=== PATIENT | female | born 1945 | race Two or more races ===

== ENCOUNTER 2023-12-29 22:27 | Emergency (ER) | payer MEDICARE, BC, SELFPAY ==
[2023-12-29 22:35] VITALS: BP 118/74
[2023-12-29 22:41] VITALS: BMI 19.2
[2023-12-29 22:53] LABS: % Basophils 0.5 % (0-2); % Eosinophils 0.9 % (0-6); % Immature Granulocytes 0.5 % (0-0.5); % Lymphocytes 35.9 % (20.5-51.1); % Monocytes 6.9 % (1.7-9.3); % Neutrophils 55.3 % (42.2-75.2); Absolute Eosinophils 0.1 10^3/uL (0-0.7); Absolute Lymphocytes 2.7 10^3/uL (1.2-3.4); Absolute Monocytes 0.5 10^3/uL (0.1-0.6); Absolute Neutrophils 4.2 10^3/uL (1.4-6.5); Hematocrit 37.4 % (37.0-47.0); Hemoglobin 12.4 g/dL (12.0-16.0); Mean Corp Hgb Conc. 33.2 g/dL (33.0-37.0); Mean Corpuscular Volume 81.3 fL (81.0-99.0); Mean Platelet Volume 8.8 fL (7.4-10.4); Nucleated Red Blood Cells % 0 %; Platelet Count 279 10^3/uL (130-400); Red Cell Dist. Width 12.3 % (11.5-14.5); White Blood Cell Count 7.6 10^3/uL (4.8-10.8)
[2023-12-29 23:00] VITALS: BP 100/61
[2023-12-29 23:14] LABS: ALT (SGPT) 21 U/L (0-35); AST (SGOT) 38 U/L (14-36); Albumin 4.8 g/dl (3.5-5.0); Alkaline Phosphatase 66 U/L (38-126); Blood Urea Nitrogen 9 mg/dl (7-17); Calcium 9.9 mg/dl (8.4-10.2); Carbon Dioxide 27 mmol/L (22-30); Chloride 103 mmol/L (98-107); Estimated Creatinine Clearance 59 ml/min; Glucose 114 mg/dl (70-99); Potassium 3.7 mmol/L (3.5-5.1); Sodium 139 mmol/L (135-145); Total Bilirubin 1.3 mg/dl (0.2-1.3); Total Protein 7.6 g/dl (6.3-8.2); eGFR > 60.00
[2023-12-29 23:20] LABS: Troponin I 0.019 ng/ml
[2023-12-30] VITALS: BP 109/61
[2023-12-30 01:00] VITALS: BP 117/67
--- NOTE | 2023-12-30 01:05 | ED.GENMED ---
History of Present Illness
General
Chief Complaint: Head Injury
Time Seen by Provider: 12/30/23 01:04
History of Present Illness
History of Present Illness:
HPI: Patient had a syncopal event during prep for colonoscopy. She did have volume loss related to the prep. She did have a head injury as well. Overall she feels significant proved currently.
EXAM:
GENERAL: Well appearing in no distress
CERVICAL SPINE: No midline c-spine tenderness with excellent AROM
HEAD: There is a right sided scalp hematoma
CHEST: No chest wall tenderness, normal heart sounds
LUNGS: Equal lung sounds, no respiratory distress
ABDOMEN: No abdominal tenderness, no peritoneal signs
EXTREMITIES: Normal active range of motion, no tenderness
NEURO: Excellent strength all extremities, appropriate mental status, normal speech/language
TIME OF INITIAL ENCOUNTER: 1:15 AM
NUMBER AND COMPLEXITY OF PROBLEMS ADDRESSED AT THE ENCOUNTER
� Chronic conditions affecting care:, Has had colitis
� Acute Exacerbation and/or Progression of Chronic Illness: This is an acute problem
� Differential Diagnosis includes: Intracranial hemorrhage, minor head injury, vasovagal event, dehydration, REN
AMOUNT AND/OR COMPLEXITY OF DATA TO BE REVIEWED AND ANALYZED
� I performed an independent evaluation of and my interpretation is:
EKG: Sinus 76, leftward axis deviation, nonspecific ST abnormality
CT: CT head shows right parietal scalp hematoma
X-rays:
Laboratory Studies: White count normal, renal function normal
Other:
� Review of other/old records: No old records available for review in [facility]
� Clinical information was obtained by an independent historian:I spoke to son and at bedside
� Prescriptions/Medications Considered but not given:
� Further testing considered but not performed:
RISK OF COMPLICATIONS AND/OR MORBIDITY OR MORTALITY OF PATIENT MANAGEMENT
� Social determinants of health affecting care: Lives at home
� Discussion with other providers:
� Escalation of care including admission/observation vs risk of discharge considered: The patient's blood pressure was somewhat low at times in the ED�she is given IV fluids. White count is normal, renal function is normal, EKG
unremarkable. CT imaging personally viewed and is unremarkable. On reassessment at 2:30 AM, the patient is very well-appearing with additional concerns. I discussed findings with family at bedside. She is planning on proceeding with colonoscopy
later this morning and [place], [place].
Phy Exam
Physical Exam
Physical Exam:
See HPI
Course
Orders/Labs/Results
Orders:
Orders
12/29/23 22:33
Electrocardiogram (*1) Urgent
Reason for Study: Other
Other Reason for Exam: Possible Stroke
Cardiac Monitoring- Treatment ONCE
EKG- Treatment ONCE
Vital Signs As Directed
Frequency: Other
Weight As Directed
Frequency: Once
Comment: ZERO STRETCHER SCALE FOR ACCURATE WEIGHT
12/29/23 22:42
Complete Blood Count/With Diff Urgent
Comprehensive Metabolic Panel Urgent
Troponin I Urgent
12/30/23 01:04
CT Head W/o Iv Contrast Urgent
Comment:
Reason For Exam: trauma head injury
12/30/23 01:30
0.9% Sodium Chloride 1000 ml [Nss] 1,000 ml IV BOLUS
Abnormal Lab Results
12/29/23
22:42
Creatinine 0.5 L mg/dL
(0.6-1.0)
Glucose 114 H mg/dl
(70-99)
AST 38 H U/L
(14-36)
12/29/23 22:42
12/29/23 22:42
Vital Signs
Initial and Last Documented VS:
Initial Vital Signs
Temp Pulse Resp Pulse Ox
97.5 F 81 16 98
12/29/23 22:33 12/29/23 22:33 12/29/23 22:33 12/29/23 22:33
Last Documented Vital Signs
Temp Pulse Resp BP Pulse Ox
97.5 F 78 13 100/61 99
12/29/23 22:33 12/29/23 23:15 12/29/23 23:15 12/29/23 23:00 12/29/23 23:15
*Critical Care Note
Total Time (30-74mins, 75-104mins- exclusive of procedures): Not Applicable
ED Attending Note
-
Portions of this chart may have been created with voice recognition software.� Occasional wrong word or��sound alike� substitutions may have occurred due to the inherent limitations of voice recognition software.
Discharge Plan
Departure
Patient Disposition: Home (Routine Discharge)
Date of Disposition: 12/30/23
Time of Disposition: 02:28
Patient with high blood pressure during this ER visit?: No
Discharge Problem:
Syncope
Referrals:
Genesis Noriega, DO [Family Provider] -
Activity Restrictions/Additional Instructions:
The CAT scan of your brain shows no acute abnormality other than a scalp hematoma. There is no bleeding in the brain. Basic blood work is unremarkable. We did give you some IV fluid here tonight as well.
Interventions
Interventions:
*General Assessment Last Done: 12/29/23 22:33
*Neglect/Abuse Screening Last Done: 12/29/23 22:33
ED- Fall Risk Assessment Last Done: 12/29/23 22:40
*ED COVID-19 Vaccine History Last Done: 12/29/23 22:33
ED- Neurological Assessment Last Done: 12/29/23 22:40
ED-Skin Assessment Last Done: 12/29/23 22:40
Discharge Date and Time
Print Language: BENGALI
[2023-12-30] MEDS: NSS 1000 IV (01:22)
[2023-12-30 02:00] VITALS: BP 113/66
[2023-12-30 02:09] VITALS: BP 113/66
== END 2023-12-30 02:45 | disposition home or self-care (01) ==
LOC: EMR 22:27
PROVIDERS: Emergency Medicine; EMERGENCY PHYSICIAN Emergency Medicine; FAMILY PHYSICIAN Family Medicine
DX: R55 Syncope and collapse (principal); S00.03XA Contusion of scalp, initial encounter; X58.XXXA Exposure to other specified factors, initial encounter
CPT/HCPCS: 99284; 96360; 70450; 80053; 84484; 85025; 93005